=== PATIENT | female | born 1990 | race Caucasian/White ===

== ENCOUNTER 2017-05-13 11:46 | Emergency (ER) | payer BC ==
--- NOTE | 2017-05-13 14:19 | ULT ---
PELVIC ULTRASOUND: Comparison: None. History: Suprapubic abdominal/pelvic pain. Positive test. Technique: Multiplanar grayscale and color doppler images were obtained in a transabdominal and trans vaginal pelvic ultrasound. FINDINGS: No intrauterine is seen within the uterus. The uterus is normal in size and appearance with out focal abnormality. The endometrial stripe is normal in thickness measuring 3 mm. No free fluid is seen in the pelvis. Both ovaries are normal in size and appearance and demonstrate n ormal internal flow. There are prominent vessels in the pelvis. IMPRESSION: No evidence of intrauterine or ectopic . POS: [facility]
== END 2017-05-13 14:26 | disposition home or self-care (01) ==
LOC: SCSER 11:46
DX: O99.89 Other specified diseases and conditions complicating pregnancy, childbirth and the puerperium (principal); R10.30 Lower abdominal pain, unspecified
CPT/HCPCS: 76856; 87480; 87491; 87510; 87591; 87660

== ENCOUNTER 2017-11-12 19:06 | Emergency (ER) | payer SELFPAY ==
[2017-11-12 19:33] LABS: Pregnancy Test - Urine (BHCG) POSITIVE (Negative); Pregu Control Background? CLEAR/WHITE (CLR/WHITE); Pregu Control Bar Appear? YES (CONTROL BAR); Specific Gravity 1.028 (1.002-1.036)
[2017-11-12] MEDS ORDERED: Acetaminophen/Codeine 30-300mg Tablet ONE (19:55)
--- NOTE | 2017-11-12 20:14 | RAD ---
RIGHT HIP: 11/12/17 Two views. HISTORY: Fall with injury to hip. Hip pain. No evidence of fracture. Femoral head is normally maintained. IMPRESSION: No acute abnormality. POS: [facility]
== END 2017-11-12 20:38 | disposition home or self-care (01) ==
LOC: SCSER 19:06
DX: O99.89 Other specified diseases and conditions complicating pregnancy, childbirth and the puerperium (principal); M25.551 Pain in right hip; O99.341 Other mental disorders complicating pregnancy, first trimester; F32.9 Major depressive disorder, single episode, unspecified; O99.331 Smoking (tobacco) complicating pregnancy, first trimester; O99.011 Anemia complicating pregnancy, first trimester; F17.210 Nicotine dependence, cigarettes, uncomplicated; O99.351 Diseases of the nervous system complicating pregnancy, first trimester; G43.909 Migraine, unspecified, not intractable, without status migrainosus; W10.9XXA Fall (on) (from) unspecified stairs and steps, initial encounter
CPT/HCPCS: 36415; 81025; 84702

== ENCOUNTER 2017-12-09 06:45 | Outpatient (CLI) | payer OTHER ==
--- NOTE | 2017-12-09 09:06 | ULT ---
OBSTETRICAL ULTRASOUND: Date: 12/09/17 INDICATION: History of cervical incompetence and delivery of two prior pregnancies prematurely due to incompetenc e. FINDINGS: Uterus measures 9.0 x 6.4 x 6.5 cm. Right ovary measures 3.1 x 2.7 x 2.3 cm. Left ovary measures 3.3 x 2.4 x 2.1 cm. There is a single, live intrauterine gestation, with a yolk sac and pole identified. Cardiac ac tivity is noted at 171 beats/minute. No subchorionic hemorrhage is evident. No free fluid is noted. C rown-rump length is 2.67 cm, giving an estimated gestational age of 9 weeks and 3 days. Gestational s ac diameter 4.43 cm, giving an estimated gestational age of 9 weeks and 6 days. The average gestation al age by ultrasound is 9 weeks and 5 days, estimated delivery date of 07/09/2018. Clinical age is 9 weeks and 5 days. Yolk sac diameter 3.8 mm. Cervical length of 3.3 cm. No overt evidence of funneling IMPRESSION: 1. Cervical length of 3.3 cm. 2. Single live intrauterine gestation. POS: [facility]
== END 2017-12-09 06:46 | disposition home or self-care (01) ==
LOC: ULT 06:45
PROVIDERS: ATTEND Family Medicine
DX: O09.211 Supervision of pregnancy with history of pre-term labor, first trimester (principal)
CPT/HCPCS: 76856

== ENCOUNTER 2017-12-11 18:26 | Observation (INO) | payer OTHER ==
[2017-12-11 19:16] LABS: #Eosinphils 0.1 thou/uL (0.0-0.7); #Lymphocytes 2.8 thou/uL (1.20-3.40); #Monocytes 0.9 thou/uL (0.11-0.59); #Neutrophils 5.7 thou/uL (1.40-6.50); %Basophils 0.2 % (0.0-1.0); %Eosinophils 1.3 % (0.0-10.0); %Monocytes 9.2 % (0.0-10.0); %Neutrophils 60.3 % (42.0-75.0); Hemoglobin 13.4 g/dL (12.0-16.0); Mean Corpuscular HGB CONC 35.4 g/dL (32.0-36.0); Mean Corpuscular Hemoglobin 32.8 pg (27.0-31.0); Mean Corpuscular Volume 92.6 fL (78.0-98.0); Mean Platelet Volume 6.7 fL (7.4-10.4); Platelet Count 221 thou/uL (130-400); RBC Distribution Width 11.6 % (11.5-14.5); Red Blood Cell (RBC) Count 4.09 mill/uL (4.20-5.40); White Blood Cell (WBC) Count 9.5 thou/uL (4.8-10.8)
[2017-12-11] MEDS ORDERED: Promethazine HCl 25 MG/ML VIAL ONE ×2 (19:21→22:14)
[2017-12-11 19:39] LABS: ALT (SGPT) 13 U/L (8-55); AST (SGOT) 14 U/L (5-34); Albumin 4.2 g/dL (3.5-5.0); Alkaline Phosphatase 41 U/L (40-150); Anion Gap 12 mmol/L (10-20); BUN (Urea Nitrogen) 12 mg/dL (7.0-18.7); Bilirubin, Total 0.3 mg/dL (0.2-1.2); Calc. Creatinine Clearance 0 mL/min (70-130); Calcium 8.8 mg/dL (7.8-10.44); Carbon Dioxide 25 mmol/L (22-29); Chloride 104 mmol/L (98-107); Estimated GFR-MDRD Greater than 90; Globulin 2.4 g/dL (2.4-3.5); Glucose 70 mg/dL (70-105); Lipase 34 U/L (8-78); Potassium 3.9 mmol/L (3.5-5.1); Protein, Total 6.6 g/dL (6.0-8.3); Sodium 137 mmol/L (136-145)
[2017-12-11 20:53] LABS: Bilirubin Negative (Negative); Blood, Urine Negative (Negative); Clarity CLEAR (Clear); Glucose, Urine (Dipstick) Negative (Negative); Leukocyte Small (Negative); Nitrite Negative (Negative); Protein, Urine (Dipstick) Negative (Neg-Trace); Specific Gravity, Urine 1.017 (1.002-1.036); Urobilinogen 0.2 mg/dL (0.2-1.0); pH, Urine 7.5 (5.0-9.0)
[2017-12-11 20:56] LABS: Bacteria/HPF None Seen HPF (None Seen); Hyaline Casts/LPF 0-3 HYALINE CAST LPF (0-3 Hyaline); Pathc Cast-AUWi Flag 0.58 (0-2.49); RBC/HPF 0-3 HPF (0-3); WBC/HPF 0-3 HPF (0-3)
[2017-12-12] MEDS ORDERED: Ondansetron HCl/PF 4 MG/2 ML Vial IVP PRN (01:21)
[2017-12-12] MEDS ORDERED: Acetaminophen 325 MG TAB PO PRN (01:21)
[2017-12-12] MEDS ORDERED: Ondansetron ODT 4 MG TAB SL PRN (01:21)
--- NOTE | 2017-12-12 01:29 | HP ---
DATE OF ADMISSION: 12/12/2017 REGULAR PHYSICIAN: Dioni Mendez M.D. EVALUATING PHYSICIAN: Dangelo Mccarty M.D. CHIEF COMPLAINT: Persistent nausea and vomiting. HISTORY OF PRESENT ILLNESS: Ms. Smith is a 27-year-old white G5, P1-2-1-3 with an estimated date of confinement of 07/09/2018 who presents complaining of a several week history of nausea and vomiting. She currently has her care with Dr. Dioni Mendez and has been treated with Diclegis and or al Zofran. She was seen 24 hours ago in [place] and was treated with IV fluids and antiemetics. She states she has had no improvement since that time and has had multiple episodes of vomiting. Here in the E R tonight, she has been given 2 liters of fluid along with Zofran and she has continued to have persi stent nausea and vomiting. PAST OBSTETRICAL HISTORY: Includes three previous vaginal deliveries, one at term and two others at 34 weeks. She has also had a miscarriage. PAST MEDICAL HISTORY: None. PAST SURGICAL HISTORY: None. CURRENT MEDICATIONS: Zofran and Diclegis as above. ALLERGIES: REGLAN, which she says makes her itch. SOCIAL HISTORY: She smoked in the past, but currently denies tobacco, alcohol, or drug use. PHYSICAL EXAMINATION: VITAL SIGNS: Currently in the ER are blood pressure 117/72, pulse 89. She is afebrile. Her O2 sat on room air is 99%. LUNGS: Chest clear to auscultation. CARDIOVASCULAR: Regular rate and rhythm. ABDOMEN: Soft and nontender. There is no guarding or rebound. PELVIC: Pelvic examination is deferred. LABORATORY DATA: White count 9.5, hemoglobin and hematocrit 13.4 and 37.9 respectively. Her platele t count is 221,000. Chemistry shows a sodium of 137, potassium of 3.9, chloride of 104, and carbon d ioxide at 25. Her BUN is 12 and her creatinine is 0.67. Her glucose is 70 and her AST and ALT are 1 4 and 13 respectively with alkaline phosphatase of 41. Urinalysis shows a specific gravity of 1.017 with negative protein, negative glucose, negative blood, negative nitrites, negative bilirubin. Ther e is a small amount of leukocyte esterase, but on microscopic there are only 0-3 rbc's, 0-3 wbc's wit h no bacteria seen. ASSESSMENT: 1. Ten-week intrauterine . 2. Hyperemesis. PLAN: At this time, I have spoken to her regular physician, Dr. Mendez and we will admit for IV fluid s and antiemetics. These have been ordered for her and we will observe her on the floor. Dr. Mendez will see her in the morning.
[2017-12-12] MEDS ORDERED: Metoclopramide HCl 10 MG/2 ML VIAL IVP SCH (09:45)
[2017-12-12] MEDS: Meclizine HCl 25 MG TAB PO SCH ×3 (10:40→22:05)
[2017-12-12] MEDS: Doxylamine 25 MG TAB PO SCH ×3 (10:41→22:35)
[2017-12-12] MEDS: pyridOXINE 50 MG (B6) TAB PO SCH ×3 (10:41→22:03)
[2017-12-12] MEDS ORDERED: Meclizine HCl 25 MG TAB PO SCH (10:45)
[2017-12-12] MEDS ORDERED: Doxylamine 25 MG TAB PO SCH (10:45)
[2017-12-12] MEDS ORDERED: pyridOXINE 50 MG (B6) TAB PO SCH (10:45)
[2017-12-12] MEDS: Dextrose 5 %-0.45 % NaCl 1,000 ML IV SCH ×3 (10:52→18:00)
[2017-12-12] MEDS ORDERED: Sodium Chloride 0.9% 10 ML ONE (17:01)
[2017-12-12] MEDS: Ondansetron ODT 8 MG TAB SL SCH ×2 (17:28→22:36)
[2017-12-12] MEDS ORDERED: Acetaminophen 500 MG TAB PO SCH (22:30)
[2017-12-13] MEDS: Dextrose 5 %-0.45 % NaCl 1,000 ML IV SCH ×2 (02:56→11:18)
[2017-12-13] MEDS ORDERED: Acetaminophen 325 MG TAB PO PRN (10:10)
[2017-12-13] MEDS: Ondansetron ODT 8 MG TAB SL SCH (11:20)
[2017-12-13] MEDS: Meclizine HCl 25 MG TAB PO SCH (11:20)
[2017-12-13] MEDS: Doxylamine 25 MG TAB PO SCH (11:21)
[2017-12-13] MEDS: pyridOXINE 50 MG (B6) TAB PO SCH (11:21)
[2017-12-13 12:02] VITALS: BP 117/51; TEMP 98
--- NOTE | 2017-12-16 03:08 | DIS ---
DATE OF ADMISSION: 12/12/2017 DATE OF DISCHARGE: 12/13/2017 PRINCIPAL DIAGNOSES: 1. Ten-week . 2. Hyperemesis. OPERATIVE PROCEDURES: None. CONSULTANTS: None. BRIEF HISTORY: A 27-year-old white female G5, P1-2-1-3, EGA 10 weeks, EDC on 07/09/2018, who has had intermittent nausea and vomiting, since was diagnosed 4 weeks ago. She initially had a re lief with Diclegis and Zofran, but reports over the last 2 days, she has had worsening nausea and vom iting, inability to tolerate even p.o. liquids. Examined on admission showed normal pulse and blood pressure. LABORATORY DATA: Show white count of 9, H&H 13 and 37, platelets 221. LFTs are normal. RFTS are no rmal. UA is negative. HOSPITAL COURSE: Ms. Smith was admitted to the Pediatric floor. She was aggressively hydrated. Sh e was started on IV scheduled Zofran, vitamin B6, doxylamine, and meclizine. She was kept n.p.o. for 24 hours and started on clear liquids, which she tolerated on hospital day #2. She admits to a regu lar diet. She tolerated on hospital day #3, she was discharged in good condition on 12/13/2017. DISCHARGE INSTRUCTIONS: 1. Activity: As tolerated. 2. Diet: [place]. DISCHARGE MEDICATIONS: Diclegis one capsule p.o. q.a.m., q.p.m., and two tablets at bedtime; meclizi ne 25 mg p.o. t.i.d.; Zofran ODT 8 mg one p.o. t.i.d. All these medicines are scheduled. Followup w cesar Mendez as scheduled in 2 weeks.
== END 2017-12-13 14:15 | disposition home or self-care (01) ==
LOC: ERS 18:26 → 3SE 12-12 00:03
PROVIDERS: ADMIT Obstetrics & Gynecology; ATTEND Family Medicine
DX: O21.0 Mild hyperemesis gravidarum (principal); Z88.8 Allergy status to other drugs, medicaments and biological substances; Z87.891 Personal history of nicotine dependence; Z3A.10 10 weeks gestation of pregnancy
CPT/HCPCS: 36415; 80053; 81003; 81015; 83690; 85025; 96361; 96365; 96376; A4216; G0378; J2550; J2765; Q0162

== ENCOUNTER 2017-12-26 17:37 | Emergency (ER) | payer OTHER ==
[2017-12-26 18:08] LABS: #Eosinphils 0.1 thou/uL (0.0-0.7); #Lymphocytes 2.4 thou/uL (1.20-3.40); %Basophils 0.3 % (0.0-1.0); %Eosinophils 0.9 % (0.0-10.0); %Lymphocytes 15.5 % (21.0-51.0); %Monocytes 6.4 % (0.0-10.0); Hemoglobin 13.7 g/dL (12.0-16.0); Mean Corpuscular HGB CONC 35.2 g/dL (32.0-36.0); Mean Corpuscular Hemoglobin 32.2 pg (27.0-31.0); Mean Corpuscular Volume 91.6 fL (78.0-98.0); Mean Platelet Volume 6.3 fL (7.4-10.4); Platelet Count 240 thou/uL (130-400); Red Blood Cell (RBC) Count 4.25 mill/uL (4.20-5.40); White Blood Cell (WBC) Count 15.5 thou/uL (4.8-10.8)
[2017-12-26 19:11] LABS: Bilirubin Negative (Negative); Blood, Urine Negative (Negative); Clarity CLEAR (Clear); Glucose, Urine (Dipstick) Negative (Negative); Leukocyte Negative (Negative); Nitrite Negative (Negative); Protein, Urine (Dipstick) Negative (Neg-Trace); Specific Gravity, Urine 1.018 (1.002-1.036); Urobilinogen 0.2 mg/dL (0.2-1.0); pH, Urine 6.5 (5.0-9.0)
[2017-12-26 20:46] LABS: ALT (SGPT) 24 U/L (8-55); AST (SGOT) 19 U/L (5-34); Albumin 4.4 g/dL (3.5-5.0); Alkaline Phosphatase 47 U/L (40-150); Anion Gap 15 mmol/L (10-20); BUN (Urea Nitrogen) 10 mg/dL (7.0-18.7); Bilirubin, Total 0.5 mg/dL (0.2-1.2); Calc. Creatinine Clearance 0 mL/min (70-130); Calcium 9.4 mg/dL (7.8-10.44); Carbon Dioxide 19 mmol/L (22-29); Chloride 105 mmol/L (98-107); Estimated GFR-MDRD Greater than 90; Globulin 2.5 g/dL (2.4-3.5); Glucose 90 mg/dL (70-105); Potassium 3.9 mmol/L (3.5-5.1); Protein, Total 6.9 g/dL (6.0-8.3); Sodium 135 mmol/L (136-145)
[2017-12-26] MEDS ORDERED: Acetaminophen 500 MG TAB ONE (22:05)
== END 2017-12-26 22:07 | disposition home or self-care (01) ==
LOC: ERS 17:37
DX: O99.89 Other specified diseases and conditions complicating pregnancy, childbirth and the puerperium (principal); O99.341 Other mental disorders complicating pregnancy, first trimester; F32.9 Major depressive disorder, single episode, unspecified; O99.011 Anemia complicating pregnancy, first trimester; O99.351 Diseases of the nervous system complicating pregnancy, first trimester; G43.909 Migraine, unspecified, not intractable, without status migrainosus; Z79.899 Other long term (current) drug therapy
CPT/HCPCS: 36415; 80053; 81003; 84702; 85025; 86900; 86901

== ENCOUNTER 2018-02-19 08:27 | Outpatient (CLI) | payer OTHER | END 2018-02-19 08:28 | disposition home or self-care (01) | LOC: BICULT 08:27 | PROVIDERS: ATTEND Family Medicine | DX: O09.212 Supervision of pregnancy with history of pre-term labor, second trimester (principal); Z3A.20 20 weeks gestation of pregnancy | CPT/HCPCS: 76805 ==

== ENCOUNTER 2018-03-05 11:53 | Day surgery (SDC) | payer OTHER ==
[2018-03-05 12:27] VITALS: BP 114/76; TEMP 99; BMI 22.6
[2018-03-05 12:52] LABS: Amnisure Test No Membranes Rupture (No Rupture)
[2018-03-05 12:53] LABS: Amnisure Internal Control QC ACCEPTABLE (ACCEPTABLE)
--- NOTE | 2018-03-05 13:32 | HP ---
DATE OF EVALUATION: 03/05/2018 TIME: 1300 LOCATION: Labor and Delivery triage A. REASON FOR EVALUATION: A 22-week and 0 days with suspected rupture of membranes/vaginal le akage. HISTORY OF PRESENT ILLNESS: In brief, this is a 27-year-old G4, P3 with 3 prior vaginal deliveries, who is at 22 weeks and 0 days by [facility], who sees Dr. Mendez for care. She states that she woke up today with "wetness in the vagina," and put on a pad and that pad was wet. She is concerned that she may be ruptured. heart tones are in the 150s. She denies recent trauma or vaginal bleedi ng. She has no contractions. She has no other issues. REVIEW OF SYSTEMS: Complete review of systems was checked and is otherwise negative unless specified in the HPI. OB HISTORY: The patient had 3 prior vaginal births (37 weeks and 34 weeks). ALLERGIES: REGLAN. SURGERIES: None. PAST MEDICAL HISTORY: None. PHYSICAL EXAMINATION: VITAL SIGNS: heart tones are in the 140s to 150s. Temperature is 99.0, blood pressure is 114/ 76 and pulse is 94. GENERAL: She is in no acute distress. ABDOMEN: Soft and nontender. There is no gross evidence of rupture on perineal inspection. LABORATORY INTERVENTIONS: AmniSure was sent and is negative. INTERVENTIONS PENDING: Ultrasound. Is in the room performing an ultrasound for estimated weig ht and amniotic fluid check. I have also requested a sterile spec examination. ASSESSMENT: This is a 27-year-old 4, para 3, patient of Dr. Mendez, at 22 weeks and 0 days, with no history of prior , with possible leakage of fluid. AmniSure is negative. Amniotic fluid grossly on ultrasound is normal. PLAN: 1. Sterile spec examination. 2. Pad checks. 3. Await final ultrasound report. 4. I have seen the patient at bedside and explained to them that a sterile speculum exam is needed. However, I have been called to the main OR for an anesthetized patient for a gynecological surgery. I have requested that the nurse either call Dr. Mendez to perform a sterile spec examination or she c an wait for me to be done with the gynecological surgery, but that may be an hour and a half. The tawny colindres knows that there may be a delay in me returning to see her for the sterile spec. I have also d iscussed this with Celina, our charge nurse, to explain the delay in her sterile spec examination. On ce again, I am on the way to the main OR. I will perform a sterile spec examination when I am done w ith that procedure or Dr. Mendez may come and do that if free.
--- NOTE | 2018-03-05 14:55 | PDOC.EVN ---
Event Note - Event Note Event Note: Sterile spec exam performed by me after patient information. Exam performed at 1445: No evidence ROM based on SSE...ni leakage with valsalva, or cough. No cervical dilation. SSE exam was negative. Amnisure negative OK for dsch
--- NOTE | 2018-03-05 15:18 | ULT ---
ULTRASOUND OBSTETRICAL: DATE: 03/05/2018. TIME: 1:30 p.m. HISTORY: Spontaneous rupture of membranes in a 27-year-old female. FINDINGS: number: castro. lie: cephalic. Maternal cervix: 3.5 cm in length, and closed. Placenta: posterior. No placenta previa. Amniotic fluid volume: 12 cm. heart rate: 157 b.p.m. anatomy not evaluated in detail. biometry: Head circumference (HC): 20.2 cm 22 w 2 d Biparietal diameter (BPD): 5.5 cm 22 w 5 d Abdominal circumference (AC): 19.1 cm 23 w 6 d Femur length (FL): 3.5 cm 21 w 1 d Average ultrasound age (AUA): 22 w 2 d Estimated date of delivery (TAMARA): 07/07/2018. Last menstrual period (LMP): 10/02/2017. Gestational age by LMP: 22 w 0 d. Estimated weight (EFW): 517 g +/- 77 g (1 lb, 2 oz +/- 3 oz). IMPRESSION: 1. Live 2nd trimester intrauterine gestation. 2. Estimated gestational age of 22 weeks, 2 days. 3. Cephalic lie. 4. The cervix is closed and not effaced. 5. Amniotic fluid index of 12 cm. GOLD Ellis POS: [facility]
== END 2018-03-05 15:32 | disposition home or self-care (01) ==
LOC: L&D/OP 11:53
PROVIDERS: ATTEND Family Medicine
DX: Z03.71 Encounter for suspected problem with amniotic cavity and membrane ruled out (principal)
CPT/HCPCS: 76805; 84112; 99283

== ENCOUNTER 2018-04-12 19:55 | Day surgery (SDC) | payer OTHER ==
[2018-04-12 20:34] VITALS: BP 125/76; TEMP 98.2; BMI 24.7
--- NOTE | 2018-04-12 20:58 | PDOC.LDHP ---
Labor and Delivery H&P Chief complaint: contractions HPI: 27 y/o at 27w3d, patient of Dr. Mendez, presents after her dog jumped on her abdomen at about 5:30 PM. Since then she has felt like she was having menstrual cramps. Denies VB, LOF, or decreased FM. ROS neg for HEENT, cv, pulm, gi, gu, neuro, psych, skin, musculoskeletal or constitutional symptoms other than mentioned above. OB History Details: 1 prior term at 37 weeks 2 prior at 34 weeks after PTL Current complications: other (hx PTL) Past Medical History: None Current medications: pre-doug vitamins Previous surgical history: none Allergies/Adverse Reactions: Allergies Allergy/AdvReac Type Severity Reaction Status Date / Time metoclopramide [From Reglan] Allergy Severe Short of Verified 03/05/18 12:28 Breath Social history: none - Physical Exam Vital signs reviewed and normal: yes General: NAD, resting Lungs: nonlabored breathing Abdomen: gravid Extremeties: no edema FHT: category 1 (150s, mod variability, + accels, no decels) [place] contractions every: 3 mins - Vaginal Exam cm dilated: 0 (Unchanged after 1.5 hours) Effacement: 0% Station: -3 - Assessment 27 y/o at 27w3d with no e/o PTL or abruption. FFN negative. status reassuring with reactive NST. - Plan -: D/c home with precautions. Advised to keep all appointments.
[2018-04-12 21:24] LABS: FFN Internal QC Analyzer PASS (PASS); FFN Internal QC Cassette PASS (PASS); Fetal Fibronectin Negative (Negative)
== END 2018-04-12 20:15 | disposition home or self-care (01) ==
LOC: L&D/OP 19:55
PROVIDERS: ATTEND Family Medicine
DX: O99.89 Other specified diseases and conditions complicating pregnancy, childbirth and the puerperium (principal); R10.2 Pelvic and perineal pain; Z3A.27 27 weeks gestation of pregnancy; Z79.899 Other long term (current) drug therapy; Z88.8 Allergy status to other drugs, medicaments and biological substances; W54.8XXA Other contact with dog, initial encounter
CPT/HCPCS: 82731; 99284

== ENCOUNTER 2018-05-20 12:25 | Day surgery (SDC) | payer BC, MEDICAID, OTHER ==
[2018-05-20 13:01] VITALS: BMI 25.7
[2018-05-20 14:09] LABS: Amnisure Test No Membranes Rupture (No Rupture)
[2018-05-20 14:10] LABS: Amnisure Internal Control QC ACCEPTABLE (ACCEPTABLE)
[2018-05-20 14:12] LABS: Bilirubin Negative (Negative); Blood, Urine Negative (Negative); Clarity CLEAR (Clear); Glucose, Urine (Dipstick) Negative (Negative); Leukocyte Negative (Negative); Nitrite Negative (Negative); Protein, Urine (Dipstick) Negative (Neg-Trace); Specific Gravity, Urine 1.008 (1.002-1.036); Urobilinogen 0.2 mg/dL (0.2-1.0)
[2018-05-20 14:16] LABS: Bacteria/HPF None Seen HPF (None Seen); Hyaline Casts/LPF 0-3 HYALINE CAST LPF (0-3 Hyaline); Pathc Cast-AUWi Flag 0.29 (0-2.49); RBC/HPF 0-3 HPF (0-3); Squamous Epithelial 0-3 HPF (0-3); WBC/HPF None Seen HPF (0-3)
[2018-05-20 14:22] LABS: FFN Internal QC Analyzer PASS (PASS); FFN Internal QC Cassette PASS (PASS); Fetal Fibronectin Negative (Negative)
--- NOTE | 2018-05-20 19:57 | HP ---
PRIMARY OPEN DIE INSPECTOR: Dioni Mendez MD CHIEF COMPLAINT: Abdominal pain. HISTORY OF PRESENT ILLNESS: The patient is a 27-year-old, G4, P3 female with an intrauterine at 32 weeks and 6 days, who is presenting with a 1-day history of uterine contractions, who presented with uterine contractions since yesterday. She reports that she has been feeling about every 4 to 6 minutes prior to coming. She has a history of 2 prior deliveries that occurred spontaneously. The patient has completed a course of steroids yesterday in the outpatient setting. The patient denies vaginal bleeding. She does report she has been having some increased leakage of fluid and thinks maybe her water broke. She reports the headaches that she has been having chronically and states she has been diagnosed with chronic migraines and is on a what sounds like a tricyclic antidepressant for prophylaxis. The patient denies any recent illness, fall, fever, headache, chest pain, or shortness of breath. She denies intercourse in the last 48 hours. She denies urinary urgency or frequency. She does report she has been having diarrhea over the last few days, but has not been large volume and has not been persistent. The patient denies any new rashes. Denies vaginal bleeding. PAST MEDICAL HISTORY: Migraines and depression. PAST SURGICAL HISTORY: Negative. SOCIAL HISTORY: Denies drug, alcohol, or tobacco use. ALLERGIES: REGLAN. MEDICATIONS: 1. vitamins. 2. Medication for prophylaxis for migraines by patient's description sounds like could be tricyclic antidepressants as the patient also states that it starts with intense. 3. Zoloft. OBSTETRICAL HISTORY: The patient has had one term spontaneous vaginal delivery and two deliveries at 34 weeks. OBSTETRICAL LABS: Unavailable at the time of dictation. REVIEW OF SYSTEMS: Per HPI. PHYSICAL EXAMINATION: VITAL SIGNS: Blood pressure 112/70, heart rate of 94, respiratory rate of 18. GENERAL: She appears to be in no acute distress. She is alert, oriented, cooperative, pleasant to interact with. HEENT: Head, normocephalic and atraumatic. LUNGS: Clear to auscultation bilaterally. HEART: Regular rate and rhythm. ABDOMEN: Soft and gravid. She does have some tenderness to the uterus on the left side with deviation to the right. At this time, the patient reports that she also has some pain with activity movement such as getting out of bed in my car. EXTREMITIES: Nontender and nonedematous. PELVIC: Vulva without masses, lesions, or erythema. Her perineum is dry. On speculum exam, she has a watery discharge that appears different than expected. At this time, the fibronectin, AmniSure, and VPIII were also collected. There was no leakage of fluid visible from the os with Valsalva. No pulling and cervix is visibly appears closed on digital exam. The patient's cervix is thick and about 1 cm dilated with head present as the presenting part. heart tracing performed for abdominal pain and , baseline noted to be in the 130s with moderate long-term variability, positive 15 x 15 accelerations, no decelerations noted. On the tocometer, the contractions are irregular, occurring every 7 to 8 minutes, again unable to identify when these occur during our conversations as this is not appear to change the patient's affect. LABORATORY DATA: fibronectin is negative. AmniSure test is negative. Urinalysis is positive for ketones, negative for leukocyte esterase, negative for bacteria for white blood cells and nitrite. VPIII testing is positive for Gardnerella. Repeat exam 2 hours after initial exam shows an unchanged cervix. The patient reports she continues to feel contractions. We explained at this time, the results of her VPIII test. The patient also reports that she has not seen since breakfast. We at this time gave her a meal to eat and offered to recheck her in an hour to confirm that she continues to not change . ASSESSMENT AND PLAN: The patient is a 27-year-old, G5, P3 female with an intrauterine at 32 weeks and 6 days, who came in for contractions, status post outpatient steroid administration. The patient does have a diagnosis of bacterial vaginosis. No evidence of urinary tract infection. No evidence of labor. No evidence of rupture of membranes. Fetus has a category I tracing and reactive NST. These results have been shared with the patient. She is satisfied and comfortable to go home with a prescription of metronidazole 500 mg taken twice a day for the next week. She has an appointment in 2 weeks with her primary OB, Dr. Mendez, who encouraged her to eat. She has been given labor precautions. Job ID: [id number]
== END 2018-05-20 16:10 | disposition home or self-care (01) ==
LOC: L&D/OP 12:25
PROVIDERS: ATTEND Family Medicine
DX: O47.03 False labor before 37 completed weeks of gestation, third trimester (principal); O99.353 Diseases of the nervous system complicating pregnancy, third trimester; G43.909 Migraine, unspecified, not intractable, without status migrainosus; O99.343 Other mental disorders complicating pregnancy, third trimester; F32.9 Major depressive disorder, single episode, unspecified; O23.593 Infection of other part of genital tract in pregnancy, third trimester; B96.89 Other specified bacterial agents as the cause of diseases classified elsewhere; Z79.899 Other long term (current) drug therapy; Z3A.32 32 weeks gestation of pregnancy
CPT/HCPCS: 81001; 82731; 84112; 87480; 87510; 87660; 99285

== ENCOUNTER 2018-06-01 19:10 | Day surgery (SDC) | payer OTHER ==
--- NOTE | 2018-06-01 19:59 | PDOC.LDHP ---
Labor and Delivery H&P Chief complaint: contractions HPI: 27 y/o at 34w4d, patient of Dr. Mendez, presents with N/V and ctx. Patient reports 2 of her babies were born at around 34 weeks and this is how her labor starts. Denies VB, LOF, or decreased FM. Has completed an outpatient round of steroids this in mid May. ROS neg for HEENT, cv, pulm, gi, gu, neuro, psych, skin, musculoskeletal or constitutional symptoms other than mentioned above. OB History Details: 1 prior at 37 weeks 2 prior at 34 weeks Current complications: none Past Medical History: Migraines and depression Current medications: pre- vitamins, other (17-OH progesterone) Previous surgical history: none Allergies/Adverse Reactions: Allergies Allergy/AdvReac Type Severity Reaction Status Date / Time metoclopramide [From Reglan] Allergy Severe Short of Verified 06/01/18 20:02 Breath Social history: none - Physical Exam Vital signs reviewed and normal: yes General: NAD, resting Lungs: nonlabored breathing Abdomen: gravid Extremeties: no edema FHT: category 1 (150s, mod variability, + accels, no decels) [place] contractions every: 2-3 mins - Vaginal Exam cm dilated: 4 (cephalic) Effacement: 50% Station: -2 - OB Labs Blood type: A RH: positive - Plan Plan: observation in L&D (N/V, ctx) -: Patient unable to tolerate PO. SVE unchanged /-2. Will place on obs for N/ V, ctx.
[2018-06-01] MEDS ORDERED: Betamet Acet/Betamet Na Ph 30 MG/5 ML VIAL IM SCH (20:00)
[2018-06-01 20:02] VITALS: BP 124/80; BMI 25.7
[2018-06-01] MEDS ORDERED: Lactated Ringer's 1,000 ML IV SCH (20:15)
[2018-06-01] MEDS: Promethazine HCl 25 MG/ML VIAL IVPB PRN (20:44)
[2018-06-01] MEDS ORDERED: Butorphanol Tartrate 1 MG/ML VIAL SLOW IVP PRN (21:12)
[2018-06-02] MEDS ORDERED: Ondansetron HCl/PF 4 MG in Sodium Chloride 0.9% 50 ML IVPB PRN (00:37)
[2018-06-02] MEDS ORDERED: Ondansetron PF 4 MG/2 ML Vial IVP PRN (00:46)
[2018-06-02] MEDS: Promethazine HCl 25 MG/ML VIAL IVPB PRN (01:10)
[2018-06-02 03:51] VITALS: TEMP 98.6
--- NOTE | 2018-06-02 09:21 | DIS ---
DATE OF ADMISSION: 06/01/2018 DATE OF DISCHARGE: 06/02/2018 DIAGNOSES: 1. contractions. 2. A 34-week intrauterine . 3. Nausea and vomiting. PROCEDURES: Nonstress test. HOSPITAL COURSE: The patient presented to Labor and Delivery with complaint of contractions. She contracted regularly but did not change her cervix. However, the patient was unable to tolerate p.o. and was placed on observation for IV hydration and antiemetics. The patient's cervix was rechecked after her overnight stay and remained unchanged at 4/50/-2. Her nausea and vomiting resolved with antiemetics and IV fluids and she was discharged home. DIET: Regular. ACTIVITIES: As tolerated. FOLLOWUP: Followup with Dr. Mendez this week. INSTRUCTIONS: labor precautions given. DISCHARGE MEDICATIONS: No new medication. Job ID: [id number]
== END 2018-06-02 05:30 | disposition home or self-care (01) ==
LOC: L&D/OP 19:10
PROVIDERS: ATTEND Family Medicine
DX: O47.03 False labor before 37 completed weeks of gestation, third trimester (principal); Z3A.34 34 weeks gestation of pregnancy; O21.2 Late vomiting of pregnancy
CPT/HCPCS: J0595; J2405; J2550

== ENCOUNTER 2018-06-02 12:31 | Inpatient (IN) | payer OTHER ==
[2018-06-02] MEDS ORDERED: HYDROcodone/Acetaminophen 5/325 mg Tablet PO PRN ×3 (12:54→17:24)
[2018-06-02] MEDS ORDERED: Carboprost 250 MCG/ML AMP IM PRN (12:54)
[2018-06-02] MEDS ORDERED: NS / Oxytocin 40 units/1000ml 1,000 ML IV PRN (12:54)
[2018-06-02] MEDS ORDERED: Lidocaine 1% (PF) 30 ML VIAL SC PRN (12:54)
[2018-06-02] MEDS ORDERED: Ibuprofen 800 MG TAB PO PRN (12:54)
[2018-06-02] MEDS ORDERED: Diphenoxylate HCl/Atropine Tablet PO PRN (12:54)
[2018-06-02] MEDS ORDERED: Misoprostol 200 MCG TAB PR PRN (12:54)
[2018-06-02] MEDS ORDERED: Ondansetron PF 4 MG/2 ML Vial IVP PRN ×2 (12:54→14:35)
[2018-06-02] MEDS ORDERED: Methylergonovine 0.2 MG/ML VIAL IM PRN (12:54)
[2018-06-02] MEDS ORDERED: Butorphanol Tartrate 1 MG/ML VIAL SLOW IVP PRN (12:54)
[2018-06-02] MEDS ORDERED: Lactated Ringer's 1,000 ML IV SCH (13:00)
[2018-06-02 13:12] VITALS: BMI 25.7
[2018-06-02 13:20] LABS: Hemoglobin 10.4 g/dL (12.0-16.0); Mean Corpuscular HGB CONC 33.6 g/dL (32.0-36.0); Mean Corpuscular Volume 86.2 fL (78.0-98.0); Mean Platelet Volume 7.4 fL (7.4-10.4); Platelet Count 226 thou/uL (130-400); RBC Distribution Width 12.6 % (11.5-14.5); Red Blood Cell (RBC) Count 3.58 mill/uL (4.20-5.40); White Blood Cell (WBC) Count 12.2 thou/uL (4.8-10.8)
[2018-06-02] MEDS ORDERED: Fentanyl 4 mcg/Bup 0.1% Cadd 100 ML ONE (13:29)
[2018-06-02] MEDS ORDERED: Ampicillin 2 GM in Sodium Chloride 0.9% 100 ML IVPB SCH (14:00)
[2018-06-02 14:02] LABS: HBSAg Index 0.17 S/CO (0-0.99); Hep B Surf Ag Non-Reactive S/CO (NonReactive); Syphilis Antibody Nonreactive (Nonreactive); Syphilis Antibody Index 0.02 S/CO (<1.00 Non-Reactive)
[2018-06-02] MEDS ORDERED: Naloxone HCl 0.4 mg/ml Vial IVP PRN ×2 (14:35)
[2018-06-02] MEDS ORDERED: ePHEDrine/0.9% NaCl/PF SYRINGE 50 mg/10 ml SLOW IVP PRN (14:35)
[2018-06-02] MEDS ORDERED: Promethazine HCl 25 MG/ML VIAL IM PRN (14:35)
[2018-06-02] MEDS ORDERED: Lactated Ringer's 500 ML IV PRN (14:35)
[2018-06-02] MEDS ORDERED: Eucerin (Mineral Oil/Petrolatum,White) 30 gm Jar TOP PRN (14:35)
[2018-06-02] MEDS ORDERED: Acetaminophen 325 MG TAB PO PRN (14:35)
[2018-06-02] MEDS ORDERED: diphenhydrAMINE 50 MG/ML VIAL IVP PRN (14:35)
[2018-06-02] MEDS ORDERED: Communication Order-Pharmacy FS SCH (14:45)
[2018-06-02] MEDS ORDERED: Fentanyl 4 mcg/Bupivacaine 0.1% Cassette 100 ML EPIDURAL SCH (14:45)
[2018-06-02] MEDS ORDERED: Bupivacaine/Epinephrine 0.25% 30 ML VIAL ONE (15:00)
[2018-06-02] MEDS ORDERED: Sodium Chloride 0.9% (PF) 10 ML VIAL ONE (15:00)
[2018-06-02] MEDS ORDERED: NS / Oxytocin 40 units/1000ml 1,000 ML ONE (16:00)
[2018-06-02] MEDS ORDERED: Milk Of Magnesia 30 ML UDCUP PO PRN (17:24)
[2018-06-02] MEDS ORDERED: Bisacodyl 10 MG SUPP PR PRN (17:24)
[2018-06-02] MEDS ORDERED: Adacel (T-DAP) 0.5 ML SYRINGE IM ONE (17:24)
[2018-06-02] MEDS ORDERED: diphenhydrAMINE 25 MG CAP PO PRN (17:24)
[2018-06-02] MEDS ORDERED: NS / Oxytocin 40 units/1000ml 1,000 ML IV SCH (17:24)
[2018-06-02] MEDS: Ibuprofen 800 MG TAB PO SCH (18:56)
[2018-06-02] MEDS: Ferrous Sulfate 325 MG TAB PO SCH (18:57)
[2018-06-02] MEDS: Docusate Calcium (SURFAK) 240 MG CAP PO SCH (21:26)
[2018-06-03] MEDS: Ibuprofen 800 MG TAB PO SCH ×3 (03:43→21:28)
[2018-06-03 06:22] LABS: Hemoglobin 8.8 g/dL (12.0-16.0); Mean Corpuscular HGB CONC 33.6 g/dL (32.0-36.0); Mean Corpuscular Hemoglobin 29.8 pg (27.0-31.0); Mean Corpuscular Volume 88.7 fL (78.0-98.0); Mean Platelet Volume 7.4 fL (7.4-10.4); Platelet Count 191 thou/uL (130-400); RBC Distribution Width 12.6 % (11.5-14.5); Red Blood Cell (RBC) Count 2.96 mill/uL (4.20-5.40); White Blood Cell (WBC) Count 11.9 thou/uL (4.8-10.8)
[2018-06-03] MEDS: Prenatal Vitamin 1 TAB PO SCH (09:06)
[2018-06-03] MEDS: Docusate Calcium (SURFAK) 240 MG CAP PO SCH ×2 (09:06→21:28)
[2018-06-03] MEDS: Ferrous Sulfate 325 MG TAB PO SCH ×2 (09:06→18:40)
[2018-06-04] MEDS: Ibuprofen 800 MG TAB PO SCH (06:03)
[2018-06-04 08:15] VITALS: BP 104/57; TEMP 98.2
[2018-06-04] MEDS: Prenatal Vitamin 1 TAB PO SCH (08:26)
[2018-06-04] MEDS: Docusate Calcium (SURFAK) 240 MG CAP PO SCH (08:27)
[2018-06-04] MEDS: Ferrous Sulfate 325 MG TAB PO SCH (08:27)
== END 2018-06-04 11:15 | disposition home or self-care (01) | DRG 807 ==
LOC: L&D/OP 12:31 → L&D 13:00 → 3SW 17:59
PROVIDERS: ADMIT Family Medicine; ATTEND Family Medicine
PROC: 10E0XZZ Delivery of Products of Conception, External Approach (ICD-10-PCS; 2018-06-02)
PROC: 10907ZC Drainage of Amniotic Fluid, Therapeutic from Products of Conception, Via Natural or Artificial Opening (ICD-10-PCS; 2018-06-02)
PROC: 3E0234Z Introduction of Serum, Toxoid and Vaccine into Muscle, Percutaneous Approach (ICD-10-PCS; principal; 2018-06-04)
DX: O60.14X0 Preterm labor third trimester with preterm delivery third trimester, not applicable or unspecified (principal); Z37.0 Single live birth; Z3A.34 34 weeks gestation of pregnancy; Z23 Encounter for immunization
CPT/HCPCS: 36415; 51702; 85027; 86780; 86850; 86900; 86901; 87340; 88307; 90715; 96360; 96361; 96372; 99283; 99285; J0290; J0595; J2405; J2550; J7050

== ENCOUNTER 2018-10-19 13:14 | Emergency (ER) | payer OTHER, SELFPAY ==
[~2018-10-19 13:14] MED LIST: ISOVUE-370 76%-LOCM 1 ML ONE
[2018-10-19 13:40] LABS: Bilirubin Negative (Negative); Blood, Urine Negative (Negative); Clarity CLEAR (Clear); Glucose, Urine (Dipstick) Negative (Negative); Leukocyte Negative (Negative); Nitrite Negative (Negative); Protein, Urine (Dipstick) Negative (Neg-Trace); Specific Gravity, Urine 1.022 (1.002-1.036); Urobilinogen 0.2 mg/dL (0.2-1.0); pH, Urine 6.5 (5.0-9.0)
[2018-10-19 13:46] LABS: #Basophils 0.1 thou/uL (0.0-0.2); #Eosinphils 0.2 thou/uL (0.0-0.7); #Lymphocytes 3.7 thou/uL (1.20-3.40); #Monocytes 0.7 thou/uL (0.11-0.59); #Neutrophils 4.6 thou/uL (1.40-6.50); %Basophils 1.2 % (0.0-1.0); %Eosinophils 2.1 % (0.0-10.0); %Lymphocytes 39.5 % (21.0-51.0); %Monocytes 7.6 % (0.0-10.0); %Neutrophils 49.6 % (42.0-75.0); Hemoglobin 13.8 g/dL (12.0-16.0); Mean Corpuscular HGB CONC 32.6 g/dL (32.0-36.0); Mean Corpuscular Volume 91.8 fL (78.0-98.0); Mean Platelet Volume 7.7 fL (7.4-10.4); Platelet Count 239 thou/uL (130-400); RBC Distribution Width 12.5 % (11.5-14.5); White Blood Cell (WBC) Count 9.3 thou/uL (4.8-10.8)
[2018-10-19 13:47] LABS: Pregnancy Test - Urine (BHCG) Negative (Negative); Pregu Control Background? CLEAR/WHITE (CLR/WHITE); Pregu Control Bar Appear? YES (CONTROL BAR); Specific Gravity 1.022 (1.002-1.036)
[2018-10-19 14:07] LABS: ALT (SGPT) 13 U/L (8-55); AST (SGOT) 14 U/L (5-34); Albumin 4.9 g/dL (3.5-5.0); Alkaline Phosphatase 59 U/L (40-150); Anion Gap 12 mmol/L (10-20); BUN (Urea Nitrogen) 11 mg/dL (7.0-18.7); Bilirubin, Total 0.6 mg/dL (0.2-1.2); Calc. Creatinine Clearance 0 mL/min (70-130); Calcium 9.8 mg/dL (7.8-10.44); Carbon Dioxide 25 mmol/L (22-29); Chloride 107 mmol/L (98-107); Estimated GFR-MDRD Greater than 90; Globulin 2.4 g/dL (2.4-3.5); Glucose 89 mg/dL (70-105); Potassium 4.2 mmol/L (3.5-5.1); Protein, Total 7.3 g/dL (6.0-8.3); Sodium 140 mmol/L (136-145)
[2018-10-19] MEDS ORDERED: Morphine 4 MG/ML VIAL ONE (14:41)
[2018-10-19] MEDS ORDERED: Ondansetron PF 4 MG/2 ML Vial ONE (14:41)
--- NOTE | 2018-10-19 15:05 | CT ---
CT abdomen and pelvis with IV contrast. Oral contrast was not administered. INDICATIONS: Abdominal pain COMPARISON: None FINDINGS: Lung bases are clear Liver, spleen, and pancreas appear unremarkable. Stomach and duodenum appear unremarkable. Adrenal glands appear normal. Kidneys appear unremarkable. Collecting structures and urinary bladder appear unremarkable. Small bowel loops are normal caliber and exhibit normal fold pattern. Appendix is identified and appears unremarkable. Colon is unremarkable. Aorta is normal caliber. No evidence of retroperitoneal or mesenteric adenopathy. Uterus appears unremarkable. Bilateral ovarian follicles. A 1.7 cm irregular shaped cystic area in th e left ovary, probably representing involuting cyst. [id number] free fluid in the cul-de-sac to the right of midline. Subcutaneous tissues, abdominal wall, and muscular structures appear unremarkable. Osseous structures appear unremarkable. IMPRESSION: Left ovarian cyst which appears to be involuting. Free fluid in the cul-de-sac. Correlate with serum hCG level.
[2018-10-19] MEDS ORDERED: Ketorolac Tromethamine 30 MG/ML VIAL ONE (15:30)
--- NOTE | 2018-10-19 15:45 | ULT ---
Pelvic sonogram transabdominal imaging with duplex evaluation HISTORY: Pelvic pain. FINDINGS: Urinary bladder is incompletely distended. Uterus has a homogeneous echotexture and is 8.5 cm. Endometrium is 0.5 cm. Physiologic amount of free fluid within the pelvis. Right ovary is 2.6 cm and left is 3.5 cm. Each contains follicles and demonstrates good color and spe ctral Doppler flow. IMPRESSION: Normal pelvic sonogram.
== END 2018-10-19 16:17 | disposition home or self-care (01) ==
LOC: ERS 13:14
DX: N83.202 Unspecified ovarian cyst, left side (principal); F32.9 Major depressive disorder, single episode, unspecified; F17.210 Nicotine dependence, cigarettes, uncomplicated; G43.909 Migraine, unspecified, not intractable, without status migrainosus; Z79.899 Other long term (current) drug therapy
CPT/HCPCS: 36415; 74177; 76856; 80053; 81003; 81025; 83690; 85025; 93976; 96361; 96374; 96375; J1885; J2270; J2405; Q9966

== ENCOUNTER 2019-01-28 13:59 | Emergency (ER) | payer SELFPAY ==
[2019-01-28 14:50] LABS: Bilirubin Negative (Negative); Blood, Urine Negative (Negative); Clarity Clear (Clear); Glucose, Urine (Dipstick) Negative (Negative); Leukocyte Negative (Negative); Nitrite Negative (Negative); Protein, Urine (Dipstick) Negative (Neg-Trace); Urobilinogen 0.2 mg/dL (Less than 2)
[2019-01-28 14:52] LABS: Pregnancy Test - Urine (BHCG) Negative (Negative); Pregu Control Background? CLEAR/WHITE (CLR/WHITE); Pregu Control Bar Appear? YES (CONTROL BAR); Specific Gravity 1.025 (1.002-1.036)
[2019-01-28 14:54] LABS: #Basophils 0.1 thou/uL (0.0-0.2); #Eosinphils 0.1 thou/uL (0.0-0.7); #Lymphocytes 2.3 thou/uL (1.20-3.40); #Monocytes 0.8 thou/uL (0.11-0.59); #Neutrophils 3.5 thou/uL (1.40-6.50); %Basophils 1.2 % (0.0-1.0); %Eosinophils 1.8 % (0.0-10.0); %Lymphocytes 33.4 % (21.0-51.0); %Monocytes 11.3 % (0.0-10.0); %Neutrophils 52.3 % (42.0-75.0); Hemoglobin 13.9 g/dL (12.0-16.0); Mean Corpuscular HGB CONC 32.2 g/dL (32.0-36.0); Mean Corpuscular Hemoglobin 29.2 pg (27.0-31.0); Mean Corpuscular Volume 90.6 fL (78.0-98.0); Mean Platelet Volume 7.7 fL (7.4-10.4); Platelet Count 201 thou/uL (130-400); Red Blood Cell (RBC) Count 4.77 mill/uL (4.20-5.40); White Blood Cell (WBC) Count 6.7 thou/uL (4.8-10.8)
[2019-01-28 15:08] LABS: ALT (SGPT) 12 U/L (8-55); AST (SGOT) 16 U/L (5-34); Albumin 4.3 g/dL (3.5-5.0); Alkaline Phosphatase 63 U/L (40-150); Anion Gap 12 mmol/L (10-20); BUN (Urea Nitrogen) 10 mg/dL (7.0-18.7); Bilirubin, Total 0.3 mg/dL (0.2-1.2); Calc. Creatinine Clearance 0 mL/min (70-130); Calcium 9.1 mg/dL (7.8-10.44); Carbon Dioxide 27 mmol/L (22-29); Chloride 107 mmol/L (98-107); Estimated GFR-MDRD Greater than 90; Globulin 2.6 g/dL (2.4-3.5); Glucose 98 mg/dL (70-105); Lipase 32 U/L (8-78); Potassium 3.8 mmol/L (3.5-5.1); Protein, Total 6.9 g/dL (6.0-8.3); Sodium 142 mmol/L (136-145)
[2019-01-28] MEDS ORDERED: Morphine 4 MG/ML VIAL ONE (15:26)
[2019-01-28] MEDS ORDERED: Ondansetron PF 4 MG/2 ML Vial ONE (15:26)
--- NOTE | 2019-01-28 15:56 | ULT ---
Pelvic ultrasound: 01/28/2019 COMPARISON: 12/09/2017 HISTORY: Left lower quadrant pain, suprapubic pain TECHNIQUE: Multiplanar grayscale sonographic imaging of the pelvis obtained with endovaginal probe. T he ovaries are assessed with Doppler interrogation including color flow and spectral analysis FINDINGS: Uterus measures 7.4 x 5.0 x 3.9 cm. Endometrial stripe is normal, approximately 3 mm. Right ovary measures 3.8 x 2.4 x 2.0 cm and left ovary measures 3.5 x 3.4 x 2.3 cm. Normal blood flow noted within both ovaries. No free fluid in the pelvis. There is a cyst within the left ovary measuring 2.4 x 1.7 x 1.6 cm. IMPRESSION: 2.4 cm left ovarian cyst.
[2019-01-28] MEDS ORDERED: Ketorolac Tromethamine 30 MG/ML VIAL ONE (16:40)
[2019-02-01 00:08] LABS: Chlamydia by PCR Not Detected (NotDetected); GC by PCR Not Detected (NotDetected)
== END 2019-01-28 16:51 | disposition home or self-care (01) ==
LOC: SCSER 13:59
DX: N83.202 Unspecified ovarian cyst, left side (principal); F17.210 Nicotine dependence, cigarettes, uncomplicated; F32.9 Major depressive disorder, single episode, unspecified
CPT/HCPCS: 76856; 80053; 81003; 81025; 83690; 85025; 87491; 87591; 96374; 96375; J1885; J2270; J2405

== ENCOUNTER 2020-08-01 12:07 | Emergency (ER) | payer SELFPAY ==
[2020-08-01 12:48] LABS: Bilirubin Negative (Negative); Blood, Urine Negative (Negative); Clarity Clear (Clear); Glucose, Urine (Dipstick) Normal (Negative); Ketone, Urine Negative (Negative); Leukocyte Negative Leu/uL (Negative); Nitrite Negative (Negative); Protein, Urine (Dipstick) Negative (Neg-Trace); Specific Gravity, Urine 1.027 (1.002-1.036); Urobilinogen Normal mg/dL (Less than 2)
[2020-08-01 12:50] LABS: Pregnancy Test - Urine (BHCG) Negative (Negative)
[2020-08-01 12:51] LABS: Pregu Control Background? CLEAR/WHITE (CLR/WHITE); Pregu Control Bar Appear? YES (CONTROL BAR); Specific Gravity 1.027 (1.002-1.036)
[2020-08-01 13:13] LABS: #Basophils 0.1 thou/uL (0.0-0.2); #Eosinphils 0.1 thou/uL (0.0-0.7); #Lymphocytes 2.7 thou/uL (1.20-3.40); #Monocytes 0.8 thou/uL (0.11-0.59); #Neutrophils 5.7 thou/uL (1.40-6.50); %Basophils 0.7 % (0.0-1.0); %Eosinophils 0.7 % (0.0-10.0); %Lymphocytes 29.5 % (21.0-51.0); %Monocytes 8.4 % (0.0-10.0); %Neutrophils 60.7 % (42.0-75.0); Hemoglobin 13.9 g/dL (12.0-16.0); Mean Corpuscular HGB CONC 31.2 g/dL (32.0-36.0); Mean Corpuscular Hemoglobin 30.4 pg (27.0-31.0); Mean Corpuscular Volume 97.4 fL (78.0-98.0); Mean Platelet Volume 7.5 fL (7.4-10.4); Platelet Count 211 thou/uL (130-400); RBC Distribution Width 12.6 % (11.5-14.5); Red Blood Cell (RBC) Count 4.57 mill/uL (4.20-5.40); White Blood Cell (WBC) Count 9.3 thou/uL (4.8-10.8)
[2020-08-01] MEDS ORDERED: Ketorolac Tromethamine 30 MG/ML VIAL ONE (13:24)
[2020-08-01] MEDS ORDERED: Ondansetron ODT 4 MG TAB ONE (13:24)
[2020-08-01 13:31] LABS: Anion Gap 12 mmol/L (10-20); BUN (Urea Nitrogen) 12 mg/dL (7.0-18.7); Calc. Creatinine Clearance 0 mL/min (70-130); Calcium 8.8 mg/dL (7.8-10.44); Carbon Dioxide 26 mmol/L (22-29); Chloride 106 mmol/L (98-107); Glucose 81 mg/dL (70-105); Potassium 3.9 mmol/L (3.5-5.1); Sodium 140 mmol/L (136-145)
[2020-08-01] MEDS ORDERED: Iopamidol-370 76% 500 ML 1 ML ONE (13:54)
--- NOTE | 2020-08-01 14:45 | CT ---
CT abdomen and pelvis with IV contrast HISTORY: Right flank pain. COMPARISON: 10/19/2018. FINDINGS: Mild bibasilar lung atelectasis. No pleural fluid. No evidence of urinary tract obstruction or calcification. Retroaortic left renal vein is again demonstrated. Left ovarian vein averages 0.7 cm diameter. Dilate d venous structures are prominent within the left side of the pelvis, around the left adnexa. Follicles of the left ovary apparent. Bilateral adnexal ligation clips. Solid organs of the abdomen are intact. No evidence of bowel obstruction or inflammation. IMPRESSION : No acute abnormalities to explain right flank pain. Pelvic venous congestion with enlargement of the left ovarian vein and likely valvular incompetence.
== END 2020-08-01 15:21 | disposition home or self-care (01) ==
LOC: ERS 12:07
DX: R10.9 Unspecified abdominal pain (principal); R11.2 Nausea with vomiting, unspecified; R10.811 Right upper quadrant abdominal tenderness; R10.813 Right lower quadrant abdominal tenderness; R50.9 Fever, unspecified; D50.9 Iron deficiency anemia, unspecified; F17.210 Nicotine dependence, cigarettes, uncomplicated
CPT/HCPCS: 36415; 74177; 80048; 81003; 81025; 85025; 96372; J1885; Q0162; Q9967